=== PATIENT | male | born 1955 | race African-American/Black ===

== ENCOUNTER 2023-04-05 11:12 | Observation (INO) ==
[2023-04-05] MEDS ORDERED: niCARdipine HCL INJ 2.5 MG/ML 10 ML AMP ONE (11:15)
[2023-04-05] MEDS ORDERED: fentaNYL citrate PF 100 MCG/2 ML VIAL ONE (11:15)
[2023-04-05] MEDS ORDERED: MIDAZOLAM HCL 1 MG/ML 2ML VIAL ONE (11:15)
[2023-04-05] MEDS ORDERED: HEPARIN (PORCINE) 1000 UNIT/ML 10 ML (CATH LAB USE ONLY) ONE (11:15)
[2023-04-05] MEDS ORDERED: NITROGLYCERIN/D5W 100MCG/ML 20ML SYR ONE (11:16)
[2023-04-05 11:46] LABS: Partial Thromboplastin Ratio 0.8; Partial Thromboplastin Time 23.1 Seconds (21.0-31.0); Prothrombin Time 10.5 Seconds (9.0-12.0)
[2023-04-05 11:51] LABS: Albumin Level 4.1 gm/dl (3.4-5.0); Bilirubin,Total 0.4 mg/dl (0.2-1.0); Calcium 9.9 mg/dl (8.6-10.3); Creatinine Clr Calc Pharmacy 41.6 ml/min; Est GFR (African American) 45.7 ml/min; Est GFR (Non-African American) 39.4 ml/min; Globulin 4.3 gm/dl (2.5-4.0); Magnesium 2.2 mg/dl (1.7-2.4); Potassium 3.9 mmol/L (3.5-5.1); Total Protein 8.4 gm/dl (6.0-8.3)
[2023-04-05 11:57] LABS: Troponin I High Sensitivity 4.3 pg/ml (0-20)
[2023-04-05 12:06] LABS: Thyroid Stimulating Hormone 5.08 uIu/ml (0.300-4.500)
--- NOTE | 2023-04-05 12:41 | XCELERA ---
[id number]
[2023-04-05 12:44] LABS: T4 Free Thyroxine 0.58 ng/dl (0.61-1.60)
[2023-04-05 13:04] LABS: Basophils # (auto) 0.03 K/uL (0.00-0.20); Basophils % (auto) 0.5 %; Eosinophils # (auto) 0.11 K/uL (0.00-0.50); Eosinophils % (auto) 1.8 %; Hematocrit (blood only) 42.8 % (42.0-52.0); Immature Granulocytes # (auto) 0.07 K/uL (0.01-0.20); Immature Granulocytes % (auto) 1.1 %; Lymphocytes # (auto) 1.82 K/uL (1.20-3.40); Lymphocytes % (auto) 29.4 %; Mean Corpuscular Hemoglobin 26.4 pg (25.0-34.0); Mean Corpuscular Volume 75.4 fL (80.0-100.0); Mean Platelet Volume 10.5 fL (9.4-12.4); Monocytes # (auto) 0.55 K/uL (0.11-0.59); Monocytes % (auto) 8.9 %; Neutrophils # (auto) 3.62 K/uL (1.40-6.50); Neutrophils % (auto) 58.3 %; Platelet Count 245 K/uL (130-400); RDW Coefficient of Variation 13.1 % (11.5-14.5); RDW Standard Deviation 34.9 fL (36.4-46.3); Red Blood Count 5.68 M/uL (4.70-6.10)
--- NOTE | 2023-04-05 13:34 | XRay Report ---
XR chest 1V portable HISTORY: Chest pain, nonspecific COMPARISON: Chest 12/23/2022. FINDINGS: The lungs are clear. The cardiac silhouette remains top normal in size. No pleural effusion s. No pneumothorax. No acute fractures. Degenerative changes within the shoulders. IMPRESSION: No acute process. ACT 112: Negative or not required by law. Electronically signed by: Mariusz Gomez M.D. 04/05/2023 1:32 PM
[2023-04-05] MEDS ORDERED: hydrALAZINE HCL 20 MG/ML VIAL IV STA ×2 (14:22→16:22)
--- NOTE | 2023-04-05 14:35 | History & Physical Report ---
Date of Service April 05, 2023 Assessment & Plan (1) Asymptomatic hypertensive urgency: Plan: 67 yo male with PMHx of resistant HTN, anxiety, insomnia, memory deficit, and HLD presents for heart alert. Patient is a prisoner at [facility]. #Hypertensive Urgency -presented from [facility] for elevated BP >[address] changes on EKG. Heart alert was called. Asymptomatic, denies cp. Cardiology following, appreciate recs. -Initial trops neg. Repeat trop ordered. -Bedside echo with EF 55-60%, severe LVH without LVOT obstruction, ?cardiac amyloid. -Home regimen includes amlodipine, losartan, and metoprolol. -Continue amlodipine and losartan. -Add HCTZ -Switch metoprolol to carvedilol for better BP control. Consider titration if HR allows. -IV hydralazine 10mg q4h prn BP systolic >180 or diastolic >120. -monitor on tele #CKD -CR 1.77 on admission. Baseline unknown, however, previously 2. Unclear if Cr elevated or if at baseline 2/2 chronic kidney disease. -Cont. to monitor. #HLD -cont. statin #Hypothyroidism -on admission TSH 5, Free T4 0.58. Very mildly low T4. Would suggest outpatient repeat before considering medication. #Anxiety -cont. buspar #Insomnia -cont. trazodone #Memory deficit -cont. donepezil DVT ppx: heparin SQ FEN/GI: HH Code Status: full Dispo: obs, med tele (2) HLD (hyperlipidemia): (3) Hypothyroid: (4) Acute kidney injury superimposed on CKD: (5) Anxiety: (6) Memory deficit: (7) Insomnia: History of Present Illness Chief Complaint: heart alert Primary Care Provider: [facility] 67 yo male with PMHx of resistant HTN, anxiety, insomnia, memory deficit, and HLD presents for heart alert. Patient is a prisoner at [facility]. They routinely check vitals and this morning his blood pressure was above 220 systolically. They obtained an EKG which also showed some ST changes in the precordial leads. [facility] was contacted and heart alert was initiated. Patient has remained asymptomatic throughout this entire process and denies headaches, diaphoresis, chest pain, shortness of breath, fevers, fatigue, nausea, vomiting, diarrhea, abdominal pain, dysuria, extremity weakness/numbness/tingling. Patient states he did take his morning medications. Initial trop neg. Allergies Allergy/AdvReac Type Severity Reaction Status Date / Time No Known Allergies Allergy Verified 04/05/23 15:43 Home Medications Medication Instructions Recorded Confirmed Type amlodipine 10 mg tablet 10 mg PO HS 04/05/23 04/05/23 History aspirin 81 mg tablet,delayed 81 mg PO DAILY 04/05/23 04/05/23 History release atorvastatin 40 mg tablet 40 mg PO HS 04/05/23 04/05/23 History buspirone 10 mg tablet 20 mg PO DAILY 04/05/23 04/05/23 History donepezil 5 mg tablet 5 mg PO HS 04/05/23 04/05/23 History losartan 100 mg tablet 100 mg PO DAILY 04/05/23 04/05/23 History metoprolol tartrate 25 mg tablet 25 mg PO BID 04/05/23 04/05/23 History trazodone 50 mg tablet 50 mg PO HS 04/05/23 04/05/23 History Past Med/Surg History Medical History Acute kidney injury superimposed on CKD HLD (hyperlipidemia) HTN (hypertension) Hypothyroid Left ventricular hypertrophy No pertinent family history Surgical History No pertinent past surgical history Social History Smoking Status: Former smoker Feels Safe at Home: Yes Review of Systems Review of Systems: All systems reviewed & are unremarkable except as noted in HPI & below Physical Exam Physical Exam: Constitutional: in no acute distress, pleasant and normal affect, intact memory. AOx3. Vitals as above. HEENT: No scleral injection or discharge. Moist mucous membranes. Neck: Supple without lymphadenopathy or thyromegaly. Trachea midline. Lungs: CTAB, no wheezes/rales/rhonchi. Cardiac: Regular rate and rhythm. No murmurs. No extremity edema. 2+ distal peripheral pulses. Abdomen: Soft, nontender, and nondistended.No guarding. No hepatosplenomegaly. MSK: No cyanosis or clubbing. Extremities motor strength 5/5. Skin: No rashes, warm, dry. Neurologic: no focal deficits Results & Data Results & Data Vital Signs (Past 12 Hours) Vital Signs Temp Pulse Pulse Resp BP BP Pulse Ox 04/05/23 12:58 57 L 18 215/123 H 97 04/05/23 11:29 60 16 203/110 H 95 04/05/23 11:31 36.8 C 70 18 220/130 H 95 04/05/23 11:21 67 O2 Del Method 04/05/23 12:58 Room Air 04/05/23 11:29 04/05/23 11:31 Room Air 04/05/23 11:21 Laboratory Results Laboratory Results WBC 6.20 K/ul (4.8-10.8) 04/05/23 10:42 RBC 5.68 M/uL (4.70-6.10) 04/05/23 10:42 Hgb 15.0 g/dl (14.0-18.0) 04/05/23 10:42 Hct 42.8 % (42.0-52.0) 04/05/23 10:42 MCV 75.4 fL (80.0-100.0) L 04/05/23 10:42 MCH 26.4 pg (25.0-34.0) 04/05/23 10:42 MCHC 35.0 g/dL (32.0-36.0) 04/05/23 10:42 RDW Std Deviation 34.9 fL (36.4-46.3) L 04/05/23 10:42 RDW Coeff of Ирина 13.1 % (11.5-14.5) 04/05/23 10:42 Plt Count 245 K/uL (130-400) 04/05/23 10:42 MPV 10.5 fL (9.4-12.4) 04/05/23 10:42 Immature Gran % (Auto) 1.1 % 04/05/23 10:42 Neut % (Auto) 58.3 % 04/05/23 10:42 Lymph % (Auto) 29.4 % 04/05/23 10:42 Platte % (Auto) 8.9 % 04/05/23 10:42 Eos % (Auto) 1.8 % 04/05/23 10:42 Baso % (Auto) 0.5 % 04/05/23 10:42 Neut # (Auto) 3.62 K/uL (1.40-6.50) 04/05/23 10:42 Lymph # (Auto) 1.82 K/uL (1.20-3.40) 04/05/23 10:42 Platte # (Auto) 0.55 K/uL (0.11-0.59) 04/05/23 10:42 Eos # (Auto) 0.11 K/uL (0.00-0.50) 04/05/23 10:42 Baso # (Auto) 0.03 K/uL (0.00-0.20) 04/05/23 10:42 Immature Gran # (Auto) 0.07 K/uL (0.01-0.20) 04/05/23 10:42 PT 10.5 Seconds (9.0-12.0) 04/05/23 10:42 INR 1.0 (0.9-1.1) 04/05/23 10:42 APTT 23.1 Seconds (21.0-31.0) 04/05/23 10:42 PTT Ratio 0.8 04/05/23 10:42 Sodium 137 mmol/L (136-145) 04/05/23 10:42 Potassium 3.9 mmol/L (3.5-5.1) 04/05/23 10:42 Chloride 103 mmol/L (98-107) 04/05/23 10:42 Carbon Dioxide 27 mmol/L (21-32) 04/05/23 10:42 Anion Gap 7 (3-11) 04/05/23 10:42 BUN 23 mg/dl (6-23) 04/05/23 10:42 Creatinine 1.77 mg/dl (0.6-1.4) H 04/05/23 10:42 Est Cr Clr Drug Dosing 41.6 ml/min 04/05/23 10:42 Est GFR ( Amer) 45.7 ml/min 04/05/23 10:42 Est GFR (Non-Af Amer) 39.4 ml/min 04/05/23 10:42 BUN/Creatinine Ratio 13.0 (10-20) 04/05/23 10:42 Glucose 85 mg/dl (70-99(Fasting)) 04/05/23 10:42 Calcium 9.9 mg/dl (8.6-10.3) 04/05/23 10:42 Magnesium 2.2 mg/dl (1.7-2.4) 04/05/23 10:42 Total Bilirubin 0.4 mg/dl (0.2-1.0) 04/05/23 10:42 AST 19 U/L (13-39) 04/05/23 10:42 ALT 18 U/L (7-52) 04/05/23 10:42 Alkaline Phosphatase 115 U/L (34-104) H 04/05/23 10:42 Total Creatine Kinase 103 U/L (30-223) 04/05/23 10:42 Troponin I High Sens 4.3 pg/ml (0-20) 04/05/23 10:42 B-Natriuretic Peptide 337 pg/ml (0-100) H 04/05/23 11:28 Total Protein 8.4 gm/dl (6.0-8.3) H 04/05/23 10:42 Albumin 4.1 gm/dl (3.4-5.0) 04/05/23 10:42 Globulin 4.3 gm/dl (2.5-4.0) H 04/05/23 10:42 Albumin/Globulin Ratio 1.0 (0.9-2) 04/05/23 10:42 Lipase 43 U/L (11-82) 04/05/23 10:42 TSH 5.080 uIu/ml (0.300-4.500) H 04/05/23 10:42 Free T4 0.58 ng/dl (0.61-1.60) L 04/05/23 10:42 Impressions Chest X-Ray 04/05/23 11:17 XR chest 1V portable HISTORY: Chest pain, nonspecific COMPARISON: Chest 12/23/2022. FINDINGS: The lungs are clear. The cardiac silhouette remains top normal in size. No pleural effusions. No pneumothorax. No acute fractures. Degenerative changes within the shoulders. IMPRESSION: No acute process. ACT 112: Negative or not required by law. Electronically signed by: Mariusz Gomez M.D. 04/05/2023 1:32 PM Code Status & VTE Plan VTE Prophylaxis Plan VTE Prophylaxis will be ordered: Yes Supervising Physician Co-Signing Physician Notes Attending addendum: I have physically seen this patient, have supervised the medical residents activities, and agree with the H&P unless as otherwise noted. Assessment and Plan: Asymptomatic hypertensive urgency/abnormal EKG- The patient will be admitted to telemetry for serial cardiac enzymes, serial EKG's, cardiac rhythm monitoring Patient was initially a heart alert, and with the assessment by interventional cardiology while in the ED, it was determined that the patient had primarily to see elevation secondary to LVH Patient was not taken to the [facility] He did have an echocardiogram performed in ED which showed ejection fraction 55- 60%, severe concentric LVH, structure consistent with myocardial amyloid, and mild to moderate RVH Patient will be admitted for hypertension control: We will continue outpatient medications of amlodipine 10 mg at bedtime, losartan 100 mg daily, Toprol tartrate 25 mg p.o. twice daily Hydralazine 10 mg IV every 6 hours as needed systolic blood pressure greater than 160. If good effect, could add hydralazine 25 mg p.o. 3 times daily CKD- Creatinine 1.77 today with most recent on 12/23/2022 2.00 Follow serially Anxiety/insomnia/memory deficit- Continue BuSpar, trazodone and donepezil Resident Activity Tracking Resident Involvement: Resident Care Provided Care Provided: Adult Hospital Medicine
--- NOTE | 2023-04-05 15:02 | Cardiology Consultation ---
Date of Consultation April 05, 2023 Assessment & Plan (1) HLD (hyperlipidemia): Patient is no more than intermediate risk. He may continue with a atorvastatin 40 mg daily and we should check a fasting lipid panel. (2) Asymptomatic hypertensive urgency: Blood pressure is very elevated. Given his underlying LVH I would recommend beta-azar, and that he should continue losartan, HCTZ, and amlodipine. I would avoid the as needed use of clonidine given the risk of rebound hype rtension. Hydralazine may be a more appropriate choice. Could also consider scheduled use of clonidine rather than as needed use. (3) Hypothyroid: This seems to be new. Certainly can affect his blood pressure control. Treatment per primary team. (4) Acute kidney injury superimposed on CKD: Current GFR is similar to prior. No more than stage IIIa disease. He has elevated globulin, total protein, and the echo findings suggesting possible cardiac amyloid. We should complete a work-up for amyloidosis, multiple myeloma, etc. Certainly, reduced kidney function may be secondary to longstanding hypertension alone. Would consider renal ultrasound, renal artery Doppler, and nephrology consultation. (5) Left ventricular hypertrophy: Possibly secondary to amyloid disease and certainly could be compounded by uncontrolled hypertension. We will check SPEP and UPEP, pre-albumin, and TTR gene testing (outpatient?). Treat hypertension. Beta-azar to reduce the likelihood of outflow tract obstruction. Further recommendations pending results of labs. (6) ST elevation: this is most consistent with LVH. There are no reciprocal ST depressions. Patient also without symptoms consistent with ACS and echo without wall motion abnormality. No cath at this time. History of Present Illness Reason for Consultation: ST elevation Requesting Physician: Dario Agustin History of Present Illness 67-year-old -[place] male prisoner. [facility] and had an EKG performed. This demonstrated ST segment elevations in the anterior precordial leads. He was transported to the emergency department at [facility]. I was asked to see him regarding the ST elevations. Patient has no chest pain, heaviness, or tightness. No shortness of breath. [facility] [place] [facility] demonstrate that his systolic blood pressure was over 220 mmHg. He has a history of hypertension, dyslipidemia, and a prior EKG demonstrating LVH. The EKG performed today in the emergency department also was consistent with ST elevation the EKG but was concave up without reciprocal ischemic changes. It was more consistent with significant LVH. Since he had no symptoms and an EKG which was consistent with an alternative reason for ST elevations he was not taken to the cardiac catheterization suite as an emergency. An echocardiogram was performed which demonstrated severe LVH, some echo findings consistent with possible cardiac amyloid disease. He also had very elevated blood pressure consistent with hypertensive urgency although from a symptomatic standpoint he essentially denied everything. Specifically denied shortness of breath, syncope, near syncope, orthopnea, PND, racing heartbeat, p alpitations, or edema. He has had dizziness in the past which was treated with meclizine. No other complaints or concerns at this time. He is noted to have dementia. Allergies Allergy/AdvReac Type Severity Reaction Status Date / Time No Known Allergies Allergy Verified 12/23/22 20:31 Home Medications Medication Instructions Recorded Confirmed Type amlodipine 10 mg tablet 10 mg PO HS 12/23/22 12/23/22 History aspirin 81 mg tablet,delayed 81 mg PO QAM 12/23/22 12/23/22 History release atorvastatin 40 mg tablet 40 mg PO HS 12/23/22 12/23/22 History clonidine HCl 0.1 mg tablet 0.1 mg PO TID PRN IF BP & GT; 12/23/22 12/23/22 History 180/100 hydrochlorothiazide 25 mg tablet 50 mg PO QAM 12/23/22 12/23/22 History losartan 100 mg tablet 100 mg PO QAM 12/23/22 12/23/22 History meclizine 12.5 mg tablet 12.5 mg PO TID PRN Dizziness 12/23/22 12/23/22 History Patient History Social History Smoking Status: Former smoker Feels Safe at Home: Yes Review of Systems Review of Systems: Negative except as per HPI Physical Exam Constitutional: WD/WN, vitals as above (No acute distress) Eyes: Anicteric ENMT: Oral mucosa is pink moist and intact. Neck: No JVD Respiratory: Clear to auscultation bilaterally. No wheezing, rhonchi, or rales. Cardiovascular: Regular rate and rhythm. S4 gallop. No rubs or murmurs appreciated. No lower extremity edema. 2+ distal pulses Musculoskeletal: no cyanosis or clubbing, extremities motor strength 5/5 Neurologic: No focal deficits. No tremor. Psychiatric: A+Ox3, euthymic affect Results & Data Vital Signs (Past 12 Hours) Vital Signs Temp Pulse Pulse Resp BP BP Pulse Ox 04/05/23 12:58 57 L 18 215/123 H 97 04/05/23 11:29 60 16 203/110 H 95 04/05/23 11:31 36.8 C 70 18 220/130 H 95 04/05/23 11:21 67 O2 Del Method 04/05/23 12:58 Room Air 04/05/23 11:29 04/05/23 11:31 Room Air 04/05/23 11:21 PG Care Time/CCT Total # of Minutes Spent Total Time Spent with Patient: Total time spent is greater than 50% in coordination of care (as documented) at patient's floor/unit and/or counseling patient: Coding Level of Care Code 01751 IN/OBS CONSULT LVL 5,80M Diagnoses HLD (hyperlipidemia) E78.5 Asymptomatic hypertensive urgency I16.0 Hypothyroid E03.9 Acute kidney injury superimposed on CKD N17.9; N18.9 Left ventricular hypertrophy I51.7 ST elevation R94.31
--- NOTE | 2023-04-05 15:47 | Emergency Department Note ---
History of Present Illness General Chief complaint: Heart Alert Stated complaint: chest pain Time Seen by Provider: 04/05/23 11:17 Source: EMS History of Present Illness Provider complaint: Heart alert 67-year-old inmate presents emergency department as hardware. Patient's story is that he went to the [facility] for a checkup and was found to have high blood pressure. They did an EKG there which showed ST segment changes and was transported to the emergency department. Patient was treated with nitroglycerin hydralazine and aspirin. Patient has a reported history of dementia. Patient reports no chest pain or difficulty breathing at this time Home Medications Medication Instructions Recorded Confirmed Type amlodipine 10 mg tablet 10 mg PO HS 04/05/23 04/05/23 History aspirin 81 mg tablet,delayed 81 mg PO DAILY 04/05/23 04/05/23 History release atorvastatin 40 mg tablet 40 mg PO HS 04/05/23 04/05/23 History buspirone 10 mg tablet 20 mg PO DAILY 04/05/23 04/05/23 History donepezil 5 mg tablet 5 mg PO HS 04/05/23 04/05/23 History losartan 100 mg tablet 100 mg PO DAILY 04/05/23 04/05/23 History metoprolol tartrate 25 mg tablet 25 mg PO BID 04/05/23 04/05/23 History trazodone 50 mg tablet 50 mg PO HS 04/05/23 04/05/23 History Allergies Allergy/AdvReac Type Severity Reaction Status Date / Time No Known Allergies Allergy Verified 04/05/23 15:43 Past Med/Surg History Medical History Acute kidney injury superimposed on CKD HLD (hyperlipidemia) HTN (hypertension) Hypothyroid Left ventricular hypertrophy No pertinent family history Surgical History No pertinent past surgical history Social History Smoking Status: Former smoker Feels Safe at Home: Yes Physical Exam Vital Signs Vital Signs - 24 hr 04/05/23 11:21 04/05/23 11:31 04/05/23 11:29 Temperature 36.8 C Temperature Source Oral Pulse Rate 67 70 60 Pulse Rate [Finger] Pulse Rhythm [Finger] Pulse Strength [Finger] Respiratory Rate 18 16 Respiratory Effort / Characteristics Non-Labored Spontaneous Respiratory Depth Normal Respiratory Pattern Regular Blood Pressure 220/130 H 203/110 H Blood Pressure [Right Arm] Blood Pressure Mean 160 162 Blood Pressure Mean [Right Arm] Blood Pressure Position Lying Blood Pressure Position [Right Arm] Pulse Oximetry 95 95 Oxygen Delivery Method Room Air Sepsis Recent Fever Within 48 Hours No Sepsis New/Unexplained Change in Mental Status No Sepsis Action Taken by Nursing No Action Required 04/05/23 12:58 04/05/23 15:42 Temperature Temperature Source Pulse Rate 59 L Pulse Rate [Finger] 57 L Pulse Rhythm [Finger] Regular Pulse Strength [Finger] Normal Respiratory Rate 18 Respiratory Effort / Characteristics Non-Labored Spontaneous Respiratory Depth Normal Respiratory Pattern Regular Blood Pressure Blood Pressure [Right Arm] 215/123 H Blood Pressure Mean Blood Pressure Mean [Right Arm] 153 Blood Pressure Position Blood Pressure Position [Right Arm] Sitting Pulse Oximetry 97 Oxygen Delivery Method Room Air Sepsis Recent Fever Within 48 Hours Sepsis New/Unexplained Change in Mental Status Sepsis Action Taken by Nursing Physical Exam GENERAL: oriented to person, place, and time. appears well-developed and well- nourished. Patient is in shackles with armed guards at bedside HENT: Exam performed. - Head: Normocephalic and atraumatic. EYES: Conjunctivae and EOM are normal. Right eye exhibits no discharge. Left eye exhibits no discharge. No scleral icterus. NECK: Normal range of motion. Neck supple. No JVD present. CV: Normal rate, regular rhythm, normal heart sounds and intact distal pulses. There is no peripheral edema. Palpable radial pulses bue. PULM/CHEST: Effort normal and breath sounds normal. No respiratory distress. No stridor. no wheezes. no rales. ABD: The abdomen is soft. There is no tenderness. NEURO: Motor and sensation grossly intact. SKIN: Skin is warm and dry. He is not diaphoretic. PSYCH: normal mood and affect. Behavior is normal. Judgment and thought content normal. Course Course 1108: Received call from EMS and reviewed the patient's EKG that was transported via EMS. Patient does have some ST segment changes in the precordial leads as well as some ST depression in leads II, III and aVF. Heart alert will be called. Previous EKGs reviewed and patient has chronic ST segment changes in his precordial leads however the ST depressions appear new. Unsure if the patient is truly having an MN and we will contact Dr. Gillespie interventional cardiology about possibly doing a bedside echo to see if there is any wall motio n abnormality before sending the patient up to the Appellate Law Clerk 1117: The patient was evaluated in room A1. A complete history and physical exam was performed Cardiac monitoring: An order was placed for continuous cardiac monitoring. The monitor shows a rate of 60 with sinus rhythm interpreted by me 1120:Dr. Gillespie at bedside. He states to conduct bedside echo. He states if there is any wall motion abnormality he will take the patient to the Appellate Law Clerk however if there is not then the patient can be admitted for serial troponins and standard cardiac work-up. 1143: color technician at bedside. 1250: Vital signs stable. Labs within normal limits with exception of a chronically elevated creatinine 1.77. Troponin negative. Patient reporting any chest pain or difficulty breathing. Patient's echo read by Dr. Gillespie showed severe left ventricular hypertrophy without left ventricular outflow tract obstruction grade 1 diastolic function normal left ventricular size systolic function with a normal RV size and function aortic valve sclerosis, no significant wall motion abnormality was mention. Patient will be admitted to the medicine team Dr. Parr's team will be notified. Administered Medications Discontinued Medications Hydralazine HCl (Hydralazine Hcl 20 Mg/Ml Vial) 10 mg IV NOW STA Stop: 04/05/23 14:23 Last Admin: 04/05/23 15:06 Dose: 10 mg Documented By: AVELINA Critical Care Time Critical Care Time: Yes Total Critical Care Time: 40 I have personally spent greater than 40 minutes of critical care time in the direct management of this patient. This includes bedside care, interpretation of diagnostic studies, and testing, discussion with consultants, patient, and family members, and other required patient management activities. This 40 minutes is in excess of all separately billable procedures. Medical Decision Making Laboratory Data Attestation: I reviewed the patient's lab results. 04/05/23 10:42 04/05/23 10:42 Lab Results 04/05/23 04/05/23 04/05/23 Range/Units 10:42 10:42 10:42 WBC 6.20 (4.8-10.8) K/ul RBC 5.68 (4.70-6.10) M/uL Hgb 15.0 (14.0-18.0) g/dl Hct 42.8 (42.0-52.0) % MCV 75.4 L (80.0-100.0) fL MCH 26.4 (25.0-34.0) pg MCHC 35.0 (32.0-36.0) g/dL RDW Std Deviation 34.9 L (36.4-46.3) fL RDW Coeff of Ирина 13.1 (11.5-14.5) % Plt Count 245 (130-400) K/uL MPV 10.5 (9.4-12.4) fL Immature Gran % (Auto) 1.1 % Neut % (Auto) 58.3 % Lymph % (Auto) 29.4 % Chester % (Auto) 8.9 % Eos % (Auto) 1.8 % Baso % (Auto) 0.5 % Neut # (Auto) 3.62 (1.40-6.50) K/uL Lymph # (Auto) 1.82 (1.20-3.40) K/uL Chester # (Auto) 0.55 (0.11-0.59) K/uL Eos # (Auto) 0.11 (0.00-0.50) K/uL Baso # (Auto) 0.03 (0.00-0.20) K/uL Immature Gran # (Auto) 0.07 (0.01-0.20) K/uL PT 10.5 (9.0-12.0) Seconds INR 1.0 (0.9-1.1) APTT 23.1 (21.0-31.0) Seconds PTT Ratio 0.8 Sodium 137 (136-145) mmol/L Potassium 3.9 (3.5-5.1) mmol/L Chloride 103 (98-107) mmol/L Carbon Dioxide 27 (21-32) mmol/L Anion Gap 7 (3-11) BUN 23 (6-23) mg/dl Creatinine 1.77 H (0.6-1.4) mg/dl Est Cr Clr Drug Dosing 41.6 ml/min Est GFR ( Amer) 45.7 ml/min Est GFR (Non-Af Amer) 39.4 ml/min BUN/Creatinine Ratio 13.0 (10-20) Glucose 85 (70-99(Fasting)) mg/dl Calcium 9.9 (8.6-10.3) mg/dl Magnesium 2.2 (1.7-2.4) mg/dl Total Bilirubin 0.4 (0.2-1.0) mg/dl AST 19 (13-39) U/L ALT 18 (7-52) U/L Alkaline Phosphatase 115 H (34-104) U/L Total Creatine Kinase 103 (30-223) U/L Troponin I High Sens 4.3 (0-20) pg/ml B-Natriuretic Peptide (0-100) pg/ml Total Protein 8.4 H (6.0-8.3) gm/dl Albumin 4.1 (3.4-5.0) gm/dl Globulin 4.3 H (2.5-4.0) gm/dl Albumin/Globulin Ratio 1.0 (0.9-2) Lipase 43 (11-82) U/L TSH 5.080 H (0.300-4.500) uIu/ml Free T4 0.58 L (0.61-1.60) ng/dl 04/05/23 Range/Units 11:28 WBC (4.8-10.8) K/ul RBC (4.70-6.10) M/uL Hgb (14.0-18.0) g/dl Hct (42.0-52.0) % MCV (80.0-100.0) fL MCH (25.0-34.0) pg MCHC (32.0-36.0) g/dL RDW Std Deviation (36.4-46.3) fL RDW Coeff of Ирина (11.5-14.5) % Plt Count (130-400) K/uL MPV (9.4-12.4) fL Immature Gran % (Auto) % Neut % (Auto) % Lymph % (Auto) % Chester % (Auto) % Eos % (Auto) % Baso % (Auto) % Neut # (Auto) (1.40-6.50) K/uL Lymph # (Auto) (1.20-3.40) K/uL Chester # (Auto) (0.11-0.59) K/uL Eos # (Auto) (0.00-0.50) K/uL Baso # (Auto) (0.00-0.20) K/uL Immature Gran # (Auto) (0.01-0.20) K/uL PT (9.0-12.0) Seconds INR (0.9-1.1) APTT (21.0-31.0) Seconds PTT Ratio Sodium (136-145) mmol/L Potassium (3.5-5.1) mmol/L Chloride (98-107) mmol/L Carbon Dioxide (21-32) mmol/L Anion Gap (3-11) BUN (6-23) mg/dl Creatinine (0.6-1.4) mg/dl Est Cr Clr Drug Dosing ml/min Est GFR ( Amer) ml/min Est GFR (Non-Af Amer) ml/min BUN/Creatinine Ratio (10-20) Glucose (70-99(Fasting)) mg/dl Calcium (8.6-10.3) mg/dl Magnesium (1.7-2.4) mg/dl Total Bilirubin (0.2-1.0) mg/dl AST (13-39) U/L ALT (7-52) U/L Alkaline Phosphatase (34-104) U/L Total Creatine Kinase (30-223) U/L Troponin I High Sens (0-20) pg/ml B-Natriuretic Peptide 337 H (0-100) pg/ml Total Protein (6.0-8.3) gm/dl Albumin (3.4-5.0) gm/dl Globulin (2.5-4.0) gm/dl Albumin/Globulin Ratio (0.9-2) Lipase (11-82) U/L TSH (0.300-4.500) uIu/ml Free T4 (0.61-1.60) ng/dl Imaging Data Radiologist's Impression: Chest X-Ray 04/05/23 11:17 XR chest 1V portable HISTORY: Chest pain, nonspecific COMPARISON: Chest 12/23/2022. FINDINGS: The lungs are clear. The cardiac silhouette remains top normal in size. No pleural effusions. No pneumothorax. No acute fractures. Degenerative changes within the shoulders. IMPRESSION: No acute process. ACT 112: Negative or not required by law. Electronically signed by: Mariusz Gomez M.D. 04/05/2023 1:32 PM ECG Data Attestation: I personally reviewed and interpreted this ECG as follows: Additional Comments: EKG at 1118: Sinus rhythm with rate of 64. LA QRS and QTc intervals within normal limits. There is ST segment elevation in leads V1, V2, V3 but the ST depression that was prior to send in the prehospital EKGs into 3 and aVF have resolved. [facility] Narrative 1108: Received call from EMS and reviewed the patient's EKG that was transported via EMS. Patient does have some ST segment changes in the precordial leads as well as some ST depression in leads II, III and aVF. Heart alert will be called. Previous EKGs reviewed and patient has chronic ST segment changes in his precordial leads however the ST depressions appear new. Unsure if the patient is truly having an MN and we will contact Dr. Gillespie interventional cardiology about possibly doing a bedside echo to see if there is any wall motion abnormality before sending the patient up to the Appellate Law Clerk 1117: The patient was evaluated in room A1. A complete history and physical exam was performed Cardiac monitoring: An order was placed for continuous cardiac monitoring. The monitor shows a rate of 60 with sinus rhythm interpreted by nh 1120:Dr. Gillespie at bedside. He states to conduct bedside echo. He states if there is any wall motion abnormality he will take the patient to the Appellate Law Clerk however if there is not then the patient can be admitted for serial troponins and standard cardiac work-up. 1143: color technician at bedside. 1250: Vital signs stable. Labs within normal limits with exception of a chronically elevated creatinine 1.77. Troponin negative. Patient reporting any chest pain or difficulty breathing. Patient's echo read by Dr. Gillespie showed severe left ventricular hypertrophy without left ventricular outflow tract obstruction grade 1 diastolic function normal left ventricular size systolic function with a normal RV size and function aortic valve sclerosis, no sig nificant wall motion abnormality was mention. Patient will be admitted to the medicine team Dr. Parr's team will be notified. Impression & Plan Asymptomatic hypertensive urgency, Acute kidney injury superimposed on CKD Discharge Plan Visit Data Chief Complaint: Heart Alert Stated Complaint: chest pain ED Provider: Bulmaro Agustin Discharge Problem: Asymptomatic hypertensive urgency, Acute kidney injury superimposed on CKD Patient Disposition: Admitted As Inpatient Forms Stand Alone Forms: [facility] Prescriptions Prescriptions: No Action atorvastatin 40 mg Tablet 40 mg PO HS donepezil 5 mg Tablet 5 mg PO HS aspirin [Aspir-Low] 81 mg Tablet,Delayed Release (Dr/Ec) 81 mg PO DAILY amlodipine 10 mg Tablet 10 mg PO HS buspirone 10 mg Tablet 20 mg PO DAILY trazodone 50 mg Tablet 50 mg PO HS losartan 100 mg Tablet 100 mg PO DAILY metoprolol tartrate 25 mg Tablet 25 mg PO BID Referrals Referrals: Tani CASTILLO [Primary Care Provider] -
[2023-04-05 16:04] LABS: Prealbumin 26.1 mg/dl (20-40)
[2023-04-05] MEDS ORDERED: hydroCHLOROthiazide 25 MG TAB PO STA (16:37)
[2023-04-05] MEDS ORDERED: carvediloL 3.125 MG TAB PO SCH (17:00)
--- NOTE | 2023-04-05 17:31 | Billing Data ---
Date of Service April 05, 2023 Coding Level of Care Code 14967 INT INP/OBS CARE
[2023-04-05] MEDS ORDERED: ONDANSETRON 4 MG OD TAB PO PRN (18:27)
[2023-04-05] MEDS ORDERED: POLYETHYLENE (MIRALAX) 17 GM PACK PO PRN (18:27)
[2023-04-05] MEDS: ATORVASTATIN 40 MG TAB PO SCH (21:00)
[2023-04-05] MEDS: amLODIPine BESYLATE 5 MG TAB PO SCH (21:00)
[2023-04-05] MEDS: carvediloL 3.125 MG TAB PO SCH (21:00)
[2023-04-05] MEDS: HEPARIN SOD 5,000 UNIT/0.5 ML VIAL SQ SCH (21:02)
[2023-04-05] MEDS: DONEPEZIL HCL 5 MG TAB PO SCH (21:02)
[2023-04-05] MEDS: traZODone HCL 50 MG TAB PO SCH (21:02)
[2023-04-05] MEDS: hydrALAZINE HCL 20 MG/ML VIAL IV PRN (22:48)
[2023-04-06] MEDS: ACETAMINOPHEN 325 MG TAB PO PRN (01:48)
[2023-04-06] MEDS ORDERED: hydrALAZINE HCL 20 MG/ML VIAL IV STA (02:45)
[2023-04-06] MEDS ORDERED: PROCHLORPERAZINE 5 MG in SYRINGE 4 ML IV ONE (03:15)
[2023-04-06 05:27] LABS: Basophils # (auto) 0.02 K/uL (0.00-0.20); Basophils % (auto) 0.4 %; Eosinophils # (auto) 0.01 K/uL (0.00-0.50); Eosinophils % (auto) 0.2 %; Hematocrit (blood only) 42.3 % (42.0-52.0); Hemoglobin 15.3 g/dl (14.0-18.0); Immature Granulocytes # (auto) 0.01 K/uL (0.01-0.20); Immature Granulocytes % (auto) 0.2 %; Lymphocytes # (auto) 0.67 K/uL (1.20-3.40); Lymphocytes % (auto) 12.5 %; Mean Corpuscular Hemoglobin 26.9 pg (25.0-34.0); Mean Corpuscular Hgb Conc 36.2 g/dL (32.0-36.0); Mean Corpuscular Volume 74.3 fL (80.0-100.0); Mean Platelet Volume 9.8 fL (9.4-12.4); Monocytes % (auto) 3.7 %; Neutrophils # (auto) 4.46 K/uL (1.40-6.50); Platelet Count 251 K/uL (130-400); RDW Standard Deviation 34.3 fL (36.4-46.3); Red Blood Count 5.69 M/uL (4.70-6.10); White Blood Count 5.37 K/ul (4.8-10.8)
[2023-04-06 05:45] LABS: Albumin Globulin Ratio 0.9 (0.9-2); Albumin Level 3.8 gm/dl (3.4-5.0); BUN Creatinine Ratio 13.5 (10-20); Bilirubin,Total 0.5 mg/dl (0.2-1.0); Calcium 9.6 mg/dl (8.6-10.3); Chol HDL Ratio 3.9 (0-5); Creatinine Clr Calc Pharmacy 39.8 ml/min; Est GFR (African American) 43.3 ml/min; Est GFR (Non-African American) 37.4 ml/min; Globulin 4.2 gm/dl (2.5-4.0)
--- NOTE | 2023-04-06 08:43 | Ultrasound Report ---
DOPPLER ULTRASOUND OF THE RENAL ARTERIES CLINICAL HISTORY: refractory HTN COMPARISON STUDY: No previous studies for comparison. TECHNIQUE: Color and duplex Doppler sonography of the abdominal aorta and renal arteries was performshanique d. FINDINGS: Peak systolic velocity within the abdominal aorta was 66 cm/s. Peak systolic velocity withi n the right renal artery was 46 cm/s. Elevated peak systolic velocity of 160 cm/s within the proximal left renal artery was noted. The left renal to aortic ratio is 2.42. Segmental waveforms within the left kidney were slightly blunted. Both renal veins were patent. There was no hydronephrosis. Trace l eft perinephric fluid is present. Kidneys are echogenic. There is no hydronephrosis. IMPRESSION: 1. Mildly elevated peak systolic velocity within the proximal left renal artery with mildly blunted w aveforms within the segmental vessels of the left kidney. Left renal artery stenosis cannot be exclud ed. A CTA of the abdomen could be obtained for further evaluation. 2. No elevated velocities within the right renal artery. ACT 112: Negative or not required by law. Electronically signed by: Carlos Fleming M.D. 04/06/2023 8:40 AM
[2023-04-06] MEDS ORDERED: amLODIPine BESYLATE 5 MG TAB PO SCH (09:00)
[2023-04-06] MEDS ORDERED: hydroCHLOROthiazide 25 MG TAB PO SCH (09:00)
--- NOTE | 2023-04-06 09:03 | Hospitalist Progress Note ---
Date of Service April 06, 2023 Assessment & Plan (1) Asymptomatic hypertensive urgency: Plan: 67 yo male with PMHx of resistant HTN, anxiety, insomnia, memory deficit, and HLD presented for heart alert when he was found to have asymptomatic severe hypertension and EKG showed ST elevations. Patient is a prisoner at [facility]. EKG was reviewed in the ED by physicians including the supervisor poultry processing and ST elevations were consistent with LVH strain pattern not acute coronary syndrome. Troponins were negative. Echo 04/05 - severe LVH without LVOT obstruction, consider cardiac amyloidosis based on myocardial echotexture. mild-mod MR, mild TR Hypertensive urgency has resolved and blood pressure is much better controlled on amlodipine, losartan, metoprolol was changed to carvedilol, hydrochlorothiazide was added - he had 1 dose of hydralazine IV 10 mg this afternoon - increase carvedilol tomorrow morning if still requiring intermittent hydralazine and heart rate tolerates continue treatment with aspirin and statin for provide risk reduction DVT ppx: heparin SQ FEN/GI: HH Code Status: full Dispo: obs, med tele (2) Left ventricular hypertrophy: Plan: Noted on echo, concern of amyloidosis was raised because of echotexture and concurrent CKD -workup started per supervisor poultry processing - renal ultrasound nonspecific, renal artery duplex - mildly elevated left renal aa indices likely some underlying stenosis - manage medically with antihypertensives -24h urine collection started for protein electrophoresis, added protein to 24h urine -SPEP pending, added free light chains and UA after discussion with poultry packer - she will be able to see him in the office this week in follow up (3) Stage 3b chronic kidney disease: Plan: Cr was 2.0 earlier in 2022 Likely hypertensive, however, see evaluation above (4) HLD (hyperlipidemia): Plan: continue statin (5) Hypothyroid: Plan: -on admission TSH 5, Free T4 0.58. Very mildly low T4. Would suggest outpatient repeat before considering medication (6) Anxiety: (7) Memory deficit: (8) Insomnia: (9) HTN (hypertension): Plan: as above Admission and Anticipated Discharge Date Admission Date: April 05, 2023 Subjective Mr. Cleaning states that he feels fine, he had some nausea and vomiting last night but this resolved, no headache no chest pain no dyspnea. Ate lunch with a good appetite Physical Exam Physical Exam: PHYSICAL EXAMINATION Last 24h vital signs reviewed, see documentation in flowsheet General: comfortable appearing, no distress HEENT: Normocephalic, atraumatic, pupils round and equal, sclerae anicteric, no conjunctival injection, moist mucus membranes Lungs: Normal respiratory effort. Clear to auscultation bilaterally. No RRW Heart: Regular rate and rhythm, no murmurs. No JVD Abdomen: Soft, nontender, nondistended. Bowel sounds present. Extremities: Warm, dry, well-perfused. No extremity edema. Neuro: Alert and oriented x 4, face symmetric, moves 4 extremities well Psych: Normal affect and behavior Results & Data Results & Data Vital Signs (Past 12 Hours) Vital Signs Temp Pulse Pulse Resp BP BP Pulse Ox 04/06/23 07:47 36.6 C 65 18 171/101 H 97 04/05/23 21:58 62 04/06/23 03:01 04/06/23 02:33 36.6 C 70 18 190/95 H 98 04/06/23 01:34 74 18 184/99 H 95 04/06/23 00:06 60 18 159/73 H 96 04/05/23 23:03 36.6 C 60 18 200/102 H 97 O2 Del Method 04/06/23 07:47 Room Air 04/05/23 21:58 04/06/23 03:01 Room Air 04/06/23 02:33 Room Air 04/06/23 01:34 Room Air 04/06/23 00:06 Room Air 04/05/23 23:03 Room Air Laboratory Results hematocrit 42, creatinine 1.85 urinalysis in December 2022 was bland Diagnostic Findings Renal artery duplex IMPRESSION: 1. Mildly elevated peak systolic velocity within the proximal left renal artery with mildly blunted waveforms within the segmental vessels of the left kidney. Left renal artery stenosis cannot be excluded. A CTA of the abdomen could be obtained for further evaluation. 2. No elevated velocities within the right renal artery. Renal US IMPRESSION: 1. No hydronephrosis. 2. Echogenic kidneys. This is a nonspecific finding however can be seen in setting of amyloidosis. 3. Numerous small renal cysts. CXR - enlarged heart PG Care Time/CCT Total # of Minutes Spent Total Time Spent with Patient: Total time spent is greater than 50% in coordination of care (as documented) at patient's floor/unit and/or counseling patient: Coding Level of Care Code 33661 SUB INP/OBS CARE 50MIN Diagnoses Asymptomatic hypertensive urgency I16.0 Left ventricular hypertrophy I51.7 Stage 3b chronic kidney disease N18.32 HLD (hyperlipidemia) E78.5 Hypothyroid E03.9 Anxiety F41.9 Memory deficit R41.3 Insomnia G47.00 HTN (hypertension) I10
--- NOTE | 2023-04-06 09:07 | Electrocardiogram Report ---
Test Reason : Blood Pressure : / mmHG Vent. Rate : 065 BPM Atrial Rate : 065 BPM P-R Int : 178 ms QRS Dur : 096 ms QT Int : 448 ms P-R-T Axes : 048 -22 -03 degrees QTc Int : 465 ms Sinus rhythm with occasional Premature ventricular complexes RSR' or QR pattern in V1 suggests right ventricular conduction delay Moderate voltage criteria for LVH, may be normal variant ( R in aVL , Rye product ) Borderline ECG When compared with ECG of 23-DEC-2022 19:07, Premature ventricular complexes are now Present ST no longer elevated in Lateral leads Confirmed by Alberto Pablo ([id number]) on 04/06/2023 9:06:51 AM Referred By: [facility] Confirmed By:Alberto Pablo
[2023-04-06] MEDS ORDERED: MoRPHine SULFATE 2 MG/ML CARP IV PRN (09:33)
[2023-04-06] MEDS: ASPIRIN 81 MG ECTAB PO SCH (09:45)
[2023-04-06] MEDS: busPIRone 5 MG TAB PO SCH (09:46)
[2023-04-06] MEDS: HEPARIN SOD 5,000 UNIT/0.5 ML VIAL SQ SCH ×2 (09:46→19:45)
[2023-04-06] MEDS: LOSARTAN POTASSIUM 50 MG TAB PO SCH (09:46)
[2023-04-06] MEDS: carvediloL 3.125 MG TAB PO SCH ×2 (09:46→19:42)
--- NOTE | 2023-04-06 10:44 | Ultrasound Report ---
RENAL ULTRASOUND CLINICAL HISTORY: CKD, suspicion of amyloidosis COMPARISON STUDY: None. TECHNIQUE: Sonography of the kidneys and the urinary bladder was performed. FINDINGS: The right kidney measures 9.5 cm in maximal dimension and the left measures 8.7 cm. Both ki dneys are echogenic. There is no hydronephrosis. No shadowing calculi are identified. There are numer ous small cysts within the kidneys. Bladder is collapsed. IMPRESSION: 1. No hydronephrosis. 2. Echogenic kidneys. This is a nonspecific finding however can be seen in setting of amyloidosis. 3. Numerous small renal cysts. ACT 112: Negative or not required by law. Electronically signed by: Carlos Fleming M.D. 04/06/2023 10:43 AM
[2023-04-06] MEDS: hydrALAZINE HCL 20 MG/ML VIAL IV PRN (15:24)
[2023-04-06] MEDS: ATORVASTATIN 40 MG TAB PO SCH (19:44)
[2023-04-06] MEDS: amLODIPine BESYLATE 5 MG TAB PO SCH (19:44)
[2023-04-06] MEDS: DONEPEZIL HCL 5 MG TAB PO SCH (19:45)
[2023-04-06] MEDS: traZODone HCL 50 MG TAB PO SCH (19:45)
[2023-04-07] MEDS: ACETAMINOPHEN 325 MG TAB PO PRN (02:35)
[2023-04-07 03:26] LABS: Urine Total Protein 14.4 mg/dl
[2023-04-07 03:39] LABS: Total Protein 24 Hour Urine 181.4 mg/24 Hr (0-149.1)
[2023-04-07] MEDS: LOSARTAN POTASSIUM 50 MG TAB PO SCH (08:20)
[2023-04-07] MEDS: carvediloL 3.125 MG TAB PO SCH (08:20)
[2023-04-07] MEDS: busPIRone 5 MG TAB PO SCH (08:22)
[2023-04-07] MEDS: HEPARIN SOD 5,000 UNIT/0.5 ML VIAL SQ SCH (08:25)
[2023-04-07] MEDS ORDERED: hydroCHLOROthiazide 25 MG TAB PO SCH (09:00)
[2023-04-07] MEDS: hydrALAZINE HCL 25 MG TAB PO SCH ×2 (09:01→12:52)
[2023-04-07] MEDS: ASPIRIN 81 MG ECTAB PO SCH (09:01)
--- NOTE | 2023-04-07 12:33 | Discharge Summary ---
Date of Service April 07, 2023 Admission HPI Per Admitting Provider 67 yo male with PMHx of resistant HTN, anxiety, insomnia, memory deficit, and HLD presents for heart alert. Patient is a prisoner at [facility]. They routinely check vitals and this morning his blood pressure was above 220 systolically. They obtained an EKG which also showed some ST changes in the precordial leads. [facility] was contacted and heart alert was initiated. Patient has remained asymptomatic throughout this entire process and denies headaches, diaphoresis, chest pain, shortness of breath, fevers, fatigue, nausea, vomiting, diarrhea, abdominal pain, dysuria, extremity weakness/numbness/tingling. Patient states he did take his morning medications. Initial trop neg. Principal Diagnosis Hypertensive emergency Discharge Exam AOx4, NAD, breathing comfotably, heart reg no mrg, lungs CTAB, abd ND, Ext wwp no edema, alert oriented to situation Discharge Data Allergies Allergy/AdvReac Type Severity Reaction Status Date / Time No Known Allergies Allergy Verified 04/05/23 15:43 Consultations 04/05/23 12:50 ED Decision to Admit Stat 04/05/23 14:49 Consult Cardiology Routine Procedures Performed Operation Date: 04/05/23 11:30 <No data on this case meets the specified criteria> Ordered Studies Na 135, K 4.0, Cr 1.85, Hct 42, HS-troponins negative EKGs - LVH with strain pattern 04/06/23 US duplex renal artery Routine DOPPLER ULTRASOUND OF THE RENAL ARTERIES CLINICAL HISTORY: refractory HTN COMPARISON STUDY: No previous studies for comparison. TECHNIQUE: Color and duplex Doppler sonography of the abdominal aorta and renal arteries was performed. FINDINGS: Peak systolic velocity within the abdominal aorta was 66 cm/s. Peak systolic velocity within the right renal artery was 46 cm/s. Elevated peak systolic velocity of 160 cm/s within the proximal left renal artery was noted. The left renal to aortic ratio is 2.42. Segmental waveforms within the left kidney were slightly blunted. Both renal veins were patent. There was no hydronephrosis. Trace left perinephric fluid is present. Kidneys are echogenic. There is no hydronephrosis. IMPRESSION: 1. Mildly elevated peak systolic velocity within the proximal left renal artery with mildly blunted waveforms within the segmental vessels of the left kidney. Left renal artery stenosis cannot be excluded. A CTA of the abdomen could be obtained for further evaluation. 2. No elevated velocities within the right renal artery. RENAL ULTRASOUND CLINICAL HISTORY: CKD, suspicion of amyloidosis COMPARISON STUDY: None. TECHNIQUE: Sonography of the kidneys and the urinary bladder was performed. FINDINGS: The right kidney measures 9.5 cm in maximal dimension and the left measures 8.7 cm. Both kidneys are echogenic. There is no hydronephrosis. No shadowing calculi are identified. There are numerous small cysts within the kidneys. Bladder is collapsed. IMPRESSION: 1. No hydronephrosis. 2. Echogenic kidneys. This is a nonspecific finding however can be seen in setting of amyloidosis. 3. Numerous small renal cysts. Transthoracic Echocardiogram Normal LV size and function, grade 1 diastolic dysfunction, severe LVH without LVOT obstruction, consider cardiac amyloidosis based on echotexture, mild-mod RVH, mild-mod MR, mild TR Hospital Course (1) Left ventricular hypertrophy: (2) Stage 3b chronic kidney disease: (3) Insomnia: (4) Memory deficit: (5) Anxiety: (6) HTN (hypertension): (7) Asymptomatic hypertensive urgency: Plan Hypertensive urgency Presenting BP >220s/120s and asymptomatic Resumed losartan Continued amlodipine Changed metoprolol to carvedilol for more BP effect Added hydralazine and HCTZ Hydralazine can be dosed qid or tid and will need to be titrated up slowly to goal BP Last 24h BPs 140-180/70-90. Recommend normalization of BP over several weeks time Marketing Development Representative consulted. EKG changes are due to LVH with strain pattern. No evidence of acute coronary syndrome. Troponins negative. Echo with concentric LVH and echogenicity raised concern for amyloidosis CKD-3 with Cr at recent baseline, based on old labs (previously 2.0, currently 1.85. Potassium 4.0) Renal ultrasound nonspecific, no obstruction Renal artery ultrasound with some mildly increased velocity on left - treat with BP management Amyloidosis workup started - 24h urine creatinine, CrCl, and protein electrophoresis results pending. SPEP and serum free light chains pending. Nephrology follow up recommended for BP CKD and follow up above results. If findings concerning for amyloidosis recommend referral to production roustabout to consider bone marrow biopsy. Recommend BMP in 1-2 weeks check renal function and potassium with resumption of losartan. I spoke with physician at [facility] regarding the above recommendations. He states he has a corner block cutter there that can help with follow up as above. Total Time Total Time Spent Total Time Spent (In Minutes): 65 minutes spent coordinating care for discharge Discharge Plan Discharge Items [facility] Disposition: [facility] Reason For Visit: HEART ALERT Discharge Diagnosis: hypertensive emergency, chronic kidney disease stage 3, LVH with strain pattern on EKG Condition on Discharge: Good Activity: Resume your previous activity Non-emergency contact: Primary Care Provider Call non-emergency contact if: you have any medication questions Follow-up/Referrals: Tani CASTILLO [Primary Care Provider] - Diet: Heart Healthy Addtl Attending Provider Instructions: Hypertensive urgency Presenting BP >220s/120s and asymptomatic Resumed losartan Continued amlodipine Changed metoprolol to carvedilol for more BP effect Added hydralazine and HCTZ Hydralazine can be dosed qid or tid and will need to be titrated up slowly to goal BP Most recent BPs 140-180/70-90. Recommend normalization of BP over several weeks time Marketing Development Representative consulted. EKG changes are due to LVH with strain pattern. No evidence of acute coronary syndrome. Troponins negative. Echo with concentric LVH and echogenicity raised concern for amyloidosis CKD-3 with Cr at recent baseline, based on old labs (previously 2.0, currently 1.85. Potassium 4.0) Renal ultrasound nonspecific, no obstruction Renal artery ultrasound with some mildly increased velocity on left - treat with BP management Amyloidosis workup started - 24h urine creatinine, CrCl, and protein electrophoresis results pending. SPEP and serum free light chains pending. Nephrology follow up recommended for BP CKD and follow up above results. If findings concerning for amyloidosis recommend referral to production roustabout to consider bone marrow biopsy. Recommend BMP in 1-2 weeks check renal function and potassium with resumption of losartan. Pending Studies at Discharge: Yes Studies:: see above Skilled Items Patient informed of condition?: Yes DNR: No Discharge Level of Care: Other Communicable Disease: No Discharge Prognosis: Improving Lines: None Urinary Catheter: No Medications and DC Order Prescriptions: New hydralazine 25 mg Tablet 25 mg PO QID Qty: 0 0RF carvedilol 3.125 mg Tablet 3.125 mg PO BID Qty: 0 0RF hydrochlorothiazide 25 mg Tablet 25 mg PO QAM Qty: 0 0RF Continued atorvastatin 40 mg Tablet 40 mg PO HS donepezil 5 mg Tablet 5 mg PO HS aspirin 81 mg Tablet,Delayed Release (Dr/Ec) 81 mg PO DAILY amlodipine 10 mg Tablet 10 mg PO HS buspirone 10 mg Tablet 20 mg PO DAILY trazodone 50 mg Tablet 50 mg PO HS losartan 100 mg Tablet 100 mg PO DAILY Discontinued metoprolol tartrate 25 mg Tablet 25 mg PO BID Admission Data Admit Date/Time: 04/05/23 14:32 Attending Provider: Valeri Barnett Admit Provider: Dileep Brothers Primary Care Provider: Tani CASTILLO Other Providers: Chente Krueger ; Alberto Pablo Coding Level of Care Code 81690 INP/OBS DISCH >30 MIN Diagnoses Left ventricular hypertrophy I51.7 Stage 3b chronic kidney disease N18.32 Insomnia G47.00 Memory deficit R41.3 Anxiety F41.9 HTN (hypertension) I10 Asymptomatic hypertensive urgency I16.0
[2023-04-07] MEDS ORDERED: INFLUENZA VACCINE HIGH-DOSE (HD-IIV4) PF 65+ 0.7mL SYR IM ONE (15:10)
--- NOTE | 2023-04-08 05:53 | Electrocardiogram Report ---
Test Reason : Blood Pressure : / mmHG Vent. Rate : 059 BPM Atrial Rate : 059 BPM P-R Int : 174 ms QRS Dur : 108 ms QT Int : 494 ms P-R-T Axes : 000 002 216 degrees QTc Int : 489 ms Sinus bradycardia RSR' or QR pattern in V1 suggests right ventricular conduction delay Left ventricular hypertrophy with repolarization abnormality Inferior infarct Anterolateral infarct , age undetermined Abnormal ECG When compared with ECG of 05-APR-2023 11:18, Premature ventricular complexes are no longer Present Anterolateral infarct is now Present Inferior infarct is now Present T wave inversion now evident in Inferior leads T wave inversion now evident in Lateral leads Confirmed by Lonnie Stringer ([id number]) on 04/08/2023 5:53:28 AM Referred By: [facility] Confirmed By:Lonnie Stringer
[2023-04-09 08:04] LABS: Albumin 3.9 g/dL (3.8-4.8); Alpha 1 Globulin 0.3 g/dL (0.2-0.3); Alpha 2 Globulin 0.7 g/dL (0.5-0.9); Beta-1-Globulin 0.5 g/dL (0.4-0.6); Beta-2-Globulin 0.5 g/dL (0.2-0.5); Gamma Globulin 1.8 g/dL (0.8-1.7); Monoclonal Protein Band 1 DNR g/dL (NONE DETECTED); Monoclonal Protein Band 2 DNR g/dL (NONE DETECTED); Monoclonal Protein Band 3 DNR g/dL (NONE DETECTED); Total Protein 7.8 g/dL (6.1-8.1)
[2023-04-09 14:07] LABS: Free Kappa 104.4 mg/L (3.3-19.4); Free Kappa/Lambda Ratio 2.44 (0.26-1.65); Free Lambda 42.8 mg/L (5.7-26.3)
[2023-04-11 08:47] LABS: Abnormal Protein Band 1 DNR mg/24 h (NONE DETECTED); Abnormal Protein Band 2 DNR mg/24 h (NONE DETECTED); Abnormal Protein Band 3 DNR mg/24 h (NONE DETECTED); Protein, Urine 24 Hour 164 mg/24 h (<150); Ur Protein/Creatinine Rat mg/g 137 mg/g creat (<100); Urine Protein/Creatinine Ratio 0.137 (<0.100)
== END 2023-04-07 15:30 ==
LOC: 2W 11:12 → ED 11:12 → SUATTDRO 14:32 → 2W 17:50